=== PATIENT | male | born 1950 | race Caucasian/White ===

== ENCOUNTER 2021-02-06 11:46 | Day surgery (SDC) | payer BC ==
[2021-02-02 15:42] VITALS: BMI 24.3
[2021-02-06] MEDS ORDERED: PROPOFOL 20 ML ONE (12:44)
[2021-02-06 13:27] VITALS: PULSE 74; TEMP 98.2
[2021-02-06 13:48] VITALS: BP 108/67
== END 2021-02-06 14:00 | disposition home or self-care (01) ==
LOC: FASU-ENDO 11:46
PROVIDERS: ATTEND Internal Medicine Gastroenterology
PROC: 0DJD8ZZ Inspection of Lower Intestinal Tract, Via Natural or Artificial Opening Endoscopic (ICD-10-PCS; principal; 2021-02-06 12:54)
DX: Z12.11 Encounter for screening for malignant neoplasm of colon (principal)

== ENCOUNTER 2023-05-29 07:46 | Day surgery (SDC) | payer OTHER, BC ==
[2023-05-22 14:26] VITALS: BMI 25.4
[2023-05-29] MEDS ORDERED: PROPOFOL 120 ML ONE (07:53)
[2023-05-29] MEDS ORDERED: LIDOCAINE HCL/PF 2% SDV 5ML VIAL ONE (07:53)
[2023-05-29 08:06] VITALS: RESP 18
[2023-05-29 08:54] VITALS: TEMP 98
[2023-05-29 09:14] VITALS: BP 110/68; PULSE 75
== END 2023-05-29 09:31 | disposition home or self-care (01) ==
LOC: FASU-ENDO 07:46
PROVIDERS: ATTEND Internal Medicine Gastroenterology
PROC: 0DBN8ZX Excision of Sigmoid Colon, Via Natural or Artificial Opening Endoscopic, Diagnostic (ICD-10-PCS; principal; 2023-05-29 08:42)
DX: K55.20 Angiodysplasia of colon without hemorrhage (principal)